=== PATIENT | female | born 1940 | race Caucasian/White ===

== ENCOUNTER 2016-09-12 17:52 | Emergency (ER) | payer OTHER, MEDICARE ==
[~2016-09-12] VITALS: Ht 162.6 cm; Wt 63.5 kg
[~2016-09-12 17:52] MED LIST: ACTONEL150 MG PO; AMIODARONE HCL200 M1 PO; BENZONATATE100 MG PO; CARVEDILOL3.125 M1 PO; COREG3.125 MG PO; COZAAR25 M1 PO; Cordarone PO; FLUOXETINE HCL20 M2 PO; FLUOXETINE20 MG PO; LANOXIN125 MCG PO; LEVOTHYROXINE88 MCG PO; LIDOCAINE PAD; LIDODERM 5% PAT1 PAT TOP; LINZESS145 MC1 PO; LIPITOR20 M2 PO; LORAZEPAM0.5 MG PO; LOSARTAN POTASS50 MG PO; MACROBID 100 M100 MG PO; MULTAQ 400MG400 MG PO; MULTIVITAMIN1 TAB PO; OMEGA 31000 MG PO; PHOSLO667 MG PO; PRADAXA150 M1 PO; PREDNISONE10 MG PO; PRILOSEC 20MG C20 MG PO; PROZAC40 M1 PO; TRAMADOL HCL50 MG PO; ZITHROMAX Z-PA250 M1 PO
--- NOTE | 2016-09-12 18:52 | ED CARDIAC/CP/PALPITATIONS ---
History of Present Illness General Chief Complaint: Abdominal Pain/Flank Pain Stated Complaint: CHEST HEAVINESS, ABD PAIN Source: patient, family Exam Limitations: no limitations Vital Signs & Intake/Output Vital Signs & Intake/Output Vital Signs Date Time Temp Pulse Resp B/P Pulse O2 O2 Flow FiO2 Ox Delivery Rate 09/12 2053 99.1 68 16 112/70 98 Room Air 09/12 1808 97.3 77 16 122/78 98 Room Air Allergies Coded Allergies: prednisone (Intermediate, "HEART GOING CRAZY AND POUNDING HEADACHE" 04/25/16) Uncoded Allergies: POLLEN GRASS WEED (04/25/16) Reconcile Medications Amiodarone HCl 200 MG TABLET 1 TAB PO DAILY AFIB (Reported) Atorvastatin Calcium (Lipitor) 20 MG TABLET 1 TAB PO DAILY CHOLESTEROL ( Reported) Carvedilol 3.125 MG TABLET 1 TAB PO BID HEART/BP (Reported) Dabigatran Etexilate Mesylate (Pradaxa 150 MG) 150 MG CAPSULE 1 CAP PO BID Blood Thinner Digoxin (Lanoxin) 125 MCG TABLET 1 TAB PO Monday HEART (Reported) Ipratropium [place] 42 MCG (0.06 %) SPRAY 1 SPRAY NASB PRN ALLERGIES ( Reported) Levothyroxine Sodium 0.088 MG TAB 0.088 MG PO DAILY AC THYROID (Reported) Linaclotide (Linzess) 290 MCG CAP 1 CAP PO DAILY CONSTIPATION (Reported) Losartan Potassium (Cozaar) 25 MG TABLET 1 TAB PO DAILY BP (Reported) Montelukast Sodium (Singulair) 10 MG TABLET 1 TAB PO DAILY ALLERGIES ( Reported) Risedronate Sodium (Actonel) 150 MG TAB 1 TAB PO Q30D BLADDER (Reported) on the same date with a full glass of water at least 30 minutes before first food or drink of the day; remain in an upright posi Vortioxetine Hydrobromide (Trintellix) 5 MG TABLET 1 TAB PO DAILY MENTAL HEALTH (Reported) Triage Note: PRESENTS TO ED COMPLAINING OF CHEST DISCOMFORT THAT BEGAN LAST NIGHT. IT HAS BEEN ON AND OFF SINCE, ALSO REPORTS INCREASE BURPING, DENIED NAUSEA OR VOMITING, NO DIAPHRESIS. SHE HAS HX OF A-FIB CURRENTLY ON PRADAXA Triage Nurses Notes Reviewed? yes HPI: 76-year-old female with multiple medical complaints. She states that yesterday afternoon she started not feeling well, malaise, feeling"fidgety inside". She went to bed and slept for most of the evening, woke up with some heaviness in the anterior chest region and epigastric region as well as belching and continued fatigue, slept throughout the day. She has no shortness of breath or fever no dyspnea on exertion. She has drinking large amounts of water, she has decreased appetite. She has no dysuria. She has history of UTIs in the past, history of dehydration. She has history of A. fib and sees Dr. Anthony Osborn, she is on Pradaxa for this. A few months ago she had a stress test that was negative and she has been well since. She denies any cough congestion or fever. No back pain, no chest pain that is radiating into the back no jaw pain or left arm. (LISA JUSTICE) Past History Travel History Traveled to [place] past 21 day No Medical History Any Pertinent Medical History? 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 No (LISA JUSTICE) Review of Systems Review of Systems Constitutional: Reports: see HPI. EENTM: Reports: no symptoms. Respiratory: Reports: no symptoms. Cardiovascular: Reports: see HPI. GI: Reports: no symptoms. Genitourinary: Reports: no symptoms. Musculoskeletal: Reports: no symptoms. Skin: Reports: no symptoms. Neurological/Psychological: Reports: no symptoms. Hematologic/Endocrine: Reports: no symptoms. Immunologic/Allergic: Reports: no symptoms. All Other Systems: Reviewed and Negative (LISA JUSTICE) Physical Exam Physical Exam Cardiovascular: regular rate/rhythm Comments: Well-developed well-nourished person in no acute distress HEENT: Normal EENT exam, extraocular motion intact, no nystagmus. Pupils equally round and reactive to light. Nose is atraumatic. Pharynx normal. No swelling or edema. Neck: Supple, no lymphadenopathy, normal range of motion without pain or tenderness Back: Nontender, no CVA tenderness. Full range of motion Cardiovascular: Regular rate and rhythms no murmurs, normal JVP Respiratory: Chest nontender. No respiratory distress. Breath sounds clear to auscultation bilaterally Abdomen: Soft, nontender nondistended, no appreciable organomegaly. Normal bowel sounds. No ascites Extremity: No edema, no calf tenderness to palpation, normal and equal pulses. Neuro: Alert oriented x3, motor sensory normal, cranial nerves II through XII grossly intact. Skin: No appreciable rash on exposed skin, skin is warm and dry. Psych: Mood and affect is normal, memory and judgment is normal. Core Measures ACS in differential dx? Yes Severe Sepsis Present: No Septic Shock Present: No (SUDHAKAR SALDANA,LISA) Progress Differential Diagnosis: AMI, aortic dissection, atrial fibrillation, cholecystitis, CHF/pulm edema, costochondritis, hyperkalemia, hypovolemia, hyperthyroid, hyperventilation, intracranial hemorrhage, musculoskeletal pain, myocarditis, pancreatitis, pericarditis, pneumonia, pneumothorax, PSVT, pulmonary embolism, PUD/GERD, PVCs/PACs, respiratory failure, rib fracture, sepsis, unstable angina, V-fib/V-Tach, WPW syndrome Plan of Care: Orders Procedure Date/time Status CULTURE,URINE 09/12 184 Active URINALYSIS 09/12 184 Complete TROPONIN LEVEL 09/12 181 Complete MAGNESIUM 09/12 181 Complete COMPREHENSIVE METABOLIC PANEL 09/12 181 Complete CHOLESTEROL 09/12 1810 Complete CBC WITHOUT DIFFERENTIAL 09/12 181 Complete EKG 09/12 1753 Active Laboratory Tests 09/12/16 1940: Anion Gap 10, Estimated GFR 49 L, BUN/Creatinine Ratio 12.7, Glucose 144 H, Calcium 9.1, Magnesium 2.6 H, Total Bilirubin 0.4, AST 27, ALT 37, Alkaline Phosphatase 65, Troponin I 0.01, Total Protein 6.4, Albumin 3.6, Globulin 2.8, Albumin/Globulin Ratio 1.3, Cholesterol 128, CBC w Diff NO MAN DIFF REQ, RBC 3.44 L, MCV 96.1, MCH 32.3 H, RDW 14.0, MPV 8.3, Gran % 53.1, Lymphocytes % 29.5, Monocytes % 13.7 H, Eosinophils % 3.0, Basophils % 0.7, Absolute Granulocytes 2.2, Absolute Lymphocytes 1.2, Absolute Monocytes 0.6, Absolute Eosinophils 0.1, Absolute Basophils 0, PUBS MCHC 33.7 09/12/161921: Urine Color YEL, Urine Clarity CLEAR, Urine pH 6.5, Ur Specific [place] 1.015, Urine Protein NEG, Urine Ketones NEG, Urine Nitrite NEG, Urine Bilirubin NEG, Urine Urobilinogen 0.2, Ur Leukocyte Esterase NEG, Ur Microscopic SEDIMENT EXAMINED, Urine RBC 10-15 H, Urine WBC 1-3 H, Ur Epithelial Cells RARE, Urine Hemoglobin SMALL H, Urine Glucose NEG Microbiology 09/12 1921 URINE ROUT: Urine Culture - RECD Diagnostic Imaging: Viewed by Me: Radiology Read. Discussed w/RAD: Radiology Read. CXR Impression: no acute abnormality, no infiltrates Initial ED EKG: NSR, rate (75), no ST T wave changes Prior EKG: unchanged Rhythm Strip: normal sinus rhythm Hand-Off Endorsed To: JAMILAH ARREAGA,ROLDAN Arroyo Endorsed Time: 1952 Pending: labs Comments: Workup started, blood tests drawn and urinalysis pending, possible dehydration versus urinary tract infection. Considered cardiac causes as well and troponin is pending, EKG is unremarkable, no change from previous. She signed out to Dr. Jarrett at change of shift (LISA JUSTICE) Departure Departure Condition: Stable Referrals: WAYNE ARREAGA,ISHA Sabillon (PCP/Family) Departure Forms: Customer Survey General Discharge Information (LISA JUSTICE) Departure Disposition: HOME OR SELF CARE Clinical Impression Primary Impression: Chest pain, unspecified Additional Instructions: RETURN IF SYMPTOMS WORSEN OR FOR ANY CONCERNS PA/COSTUMED CHARACTER ENTERTAINER Co-Sign Statement Statement: ED Attending supervision documentation- [X] I saw and evaluated the patient. I have also reviewed all the pertinent lab results and diagnostic results. I agree with the findings and the plan of care as documented in the PA's/COSTUMED CHARACTER ENTERTAINER's documentation. [X] I have reviewed the ED Record and agree with the PA's/COSTUMED CHARACTER ENTERTAINER's documentation. [] Additions or exceptions (if any) to the PAs/COSTUMED CHARACTER ENTERTAINER's note and plan are summarized below: [Patient came in with a fullness sensation in her epigastric and lower chest area that started last night. Patient was able to fall asleep but woke up and still had the discomfort. The discomfort and pain with her all day. There no aggravating or mitigating factors. Patient did have a normal bowel movement. Patient states that she has been belching more than normal however that has not been helping. Her workup is within normal limits. Patient drink some water and ate crackers in the emergency department and currently feels better. 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 Patient advised to return for any concerns or if her symptoms come back.] (JAMILAH ARREAGA,ROLDAN Arroyo) Critical Care Note Critical Care Note Critical Care Time: non-applicable (SUDHAKAR SALDANA,LISA)
--- NOTE | 2016-09-12 19:05 | RADIOLOGY REPORT ---
EXAMINATION: XR PORTABLE CHEST CLINICAL INFORMATION: Chest pressure. COMPARISON: Chest x-ray 07/12/2016 TECHNIQUE: Portable AP portable view of the chest was obtained. 6:47 PM FINDINGS: Lungs are clear. No pulmonary vascular congestion. No infiltrate or pleural effusion. The heart size is normal. The cardiac and mediastinal contours are normal. There are calcifications of the thoracic aorta. There are multilevel degenerative changes of dorsal spine. IMPRESSION: Unremarkable examination.
[2016-09-12] MEDS ORDERED: SINGULAIR10 M1 PO (19:18)
[2016-09-12] MEDS ORDERED: IPRATROPIUM BRO15 M1 NASB (19:18)
[2016-09-12] MEDS ORDERED: TRINTELLIX5 MG PO (19:19)
[2016-09-12 19:53] LABS: ABSOLUTE BASOPHIL COUNT 0 /CUMM (0.0-0.2); ABSOLUTE EOSINOPHIL COUNT 0.1 /CUMM (0.0-0.7); ABSOLUTE GRANULOCYTE CT 2.2 /CUMM (1.4-6.5); ABSOLUTE LYMPH COUNT 1.2 /CUMM (1.2-3.4); ABSOLUTE MONOCYTE COUNT 0.6 /CUMM (0.10-0.60); BASOPHIL % 0.7 % (0.0-2.0); GRANULOCYTE % 53.1 % (42.2-75.2); HEMATOCRIT 33.1 % (37-47); MEAN CORPUSCULAR HGB 32.3 PG (27.0-31.0); MEAN CORPUSCULAR HGB CONC 33.7 G/DL (33.0-37.0); MEAN CORPUSCULAR VOLUME 96.1 FL (81.0-99.0); MEAN PLATELET VOLUME 8.3 FL (7.4-10.4); PLATELET COUNT 177 /CUMM (130-400); RED BLOOD CELL CT 3.44 /CUMM (4.20-5.40); WHITE BLOOD CELL COUNT 4.2 /CUMM (4.8-10.8)
[2016-09-12 20:54] VITALS: BP 112/70
== END 2016-09-12 21:15 ==
LOC: ERH 17:52
PROVIDERS: Emergency Medicine
DX: R07.89 Other chest pain (principal)
CPT/HCPCS: 81001; 87086; 93005; 93010

== ENCOUNTER 2016-10-15 14:01 | Emergency (ER) | payer OTHER, MEDICARE ==
[~2016-10-15] VITALS: Ht 162.6 cm; Wt 63.5 kg
[~2016-10-15 14:01] MED LIST changes: +IPRATROPIUM BRO15 M1 NASB; +SINGULAIR10 M1 PO; +TRINTELLIX5 MG PO
--- NOTE | 2016-10-15 15:03 | ED AMS/SEIZURE/WEAK/DIZZY ---
History of Present Illness General Chief Complaint: General Adult Stated Complaint: WEAK;AGUILAR Source: patient, family, old records Exam Limitations: no limitations Vital Signs & Intake/Output Vital Signs & Intake/Output Vital Signs Date Time Temp Pulse Resp B/P Pulse O2 O2 Flow FiO2 Ox Delivery Rate 10/15 1543 68 118/68 10/15 1517 64 118/78 10/15 1406 97.7 73 18 118/77 97 Room Air Allergies Coded Allergies: prednisone (Intermediate, "HEART GOING CRAZY AND POUNDING HEADACHE" 04/25/16) Uncoded Allergies: POLLEN GRASS WEED (04/25/16) Reconcile Medications Amiodarone HCl 200 MG TABLET 1 TAB PO DAILY AFIB (Reported) Atorvastatin Calcium (Lipitor) 20 MG TABLET 1 TAB PO DAILY CHOLESTEROL ( Reported) Carvedilol 3.125 MG TABLET 1 TAB PO BID HEART/BP (Reported) Dabigatran Etexilate Mesylate (Pradaxa 150 MG) 150 MG CAPSULE 1 CAP PO BID Blood Thinner Digoxin (Lanoxin) 125 MCG TABLET 1 TAB PO Monday HEART (Reported) Ipratropium [place] 42 MCG (0.06 %) SPRAY 1 SPRAY NASB PRN ALLERGIES ( Reported) Levothyroxine Sodium 88 MCG TABLET 1 TAB PO DAILY THYROID (Reported) Linaclotide (Linzess) 145 MCG CAPSULE 1 CAP PO DAILY GI (Reported) Losartan Potassium (Cozaar) 25 MG TABLET 1 TAB PO DAILY BP (Reported) Montelukast Sodium (Singulair) 10 MG TABLET 1 TAB PO DAILY PRN ALLERGIES ( Reported) Polyethylene Glycol 3350 17 GRAM/DOSE POWDER 17 GM PO BID GI (Reported) Risedronate Sodium (Actonel) 150 MG TABLET 1 TAB PO Q30D BONES (Reported) on the same date with a full glass of water at least 30 minutes before first food or drink of the day; remain in an upright posi Sennosides (Senokot) 8.6 MG TABLET 1 TAB PO DAILY GI (Reported) Vortioxetine Hydrobromide (Trintellix) 5 MG TABLET 1 TAB PO DAILY MENTAL HEALTH (Reported) Triage Note: PT TO ED FOR "DEHYDRATION AND WEAKNESS". SAW DR MICHAUD MONDAY FOR EKG WHICH WAS "NORMAL". DENIES CP, SOB, HURTADO. Triage Nurses Notes Reviewed? yes Onset: Gradual Duration: week(s): (2) Injury Environment: home Severity: mild No Modifying Factors: none Associated Symptoms: weakness HPI: 76 year old female presents with weakness and feels she may be dehydrated. No chest pain, shortness of breath, n/v/d or fever chills. She just had a follow up with Dr. Aguilar on monday for regular check up and everything was okay. No change in meds or diet. She does have occasional cough and sometimes wakes up with some dried blood around the edges of her mouth. Denies any hemoptysis. Per PCP told her that maybe she has some occasional bleeding from her nose secondary to dry environment in the winter. No tongue lacerations. No incontinence or seizure activity. Past History Travel History Traveled to [place] past 21 day No Medical History Any Pertinent Medical History? 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 No Review of Systems Review of Systems Constitutional: Reports: malaise, weakness. Denies: chills, diaphoresis. EENTM: Reports: no symptoms. Respiratory: Reports: cough. Denies: short of breath, sputum production. Cardiovascular: Denies: chest pain, palpitations, peripheral edema. GI: Denies: abdominal pain, diarrhea, nausea, vomiting. Genitourinary: Reports: no symptoms. Musculoskeletal: Reports: no symptoms. Skin: Reports: no symptoms. Neurological/Psychological: Reports: no symptoms. Hematologic/Endocrine: Reports: bleeding. Denies: bruising, polyuria, polydipsia. Immunologic/Allergic: Denies: splenectomy. All Other Systems: Reviewed and Negative Physical Exam Physical Exam General Appearance: well developed/nourished, alert, awake, mild distress Head: atraumatic, normal appearance Eyes: Bilateral: normal appearance, PERRL, EOMI. Ears, Nose, Throat: normal pharynx, hearing grossly normal Neck: normal inspection, supple, full range of motion Respiratory: normal breath sounds, chest non-tender, no respiratory distress Cardiovascular: regular rate/rhythm Peripheral Pulses: 2+ radial (R), 2+ radial (L) Gastrointestinal: normal bowel sounds, soft, non-tender Back: normal inspection, normal range of motion Extremities: normal range of motion Neurologic/Psych: no motor/sensory deficits, awake, alert, oriented x 3 Skin: intact, normal color, warm/dry Core Measures ACS in differential dx? No CVA/TIA Diagnosis: No Severe Sepsis Present: No Septic Shock Present: No Progress Differential Diagnosis: arrythmia, anemia, dehydration, electrolyte imbalance, GI bleed, pneumonia, postural hypotension Plan of Care: Orders Procedure Date/time Status FREE T4 10/15 1514 Complete URINALYSIS 10/15 1506 Complete THYROID STIMULATING HORMONE 10/15 1502 Complete DIGOXIN 10/15 1502 Complete TROPONIN LEVEL 10/15 1449 Complete COMPREHENSIVE METABOLIC PANEL 10/15 1449 Complete CBC WITHOUT DIFFERENTIAL 10/15 1449 Complete EKG 10/15 1449 Active Laboratory Tests 10/15/16 1647: Urine Color STRAW, Urine Clarity CLEAR, Urine pH 6.5, Ur Specific [place] 1.010, Urine Protein NEG, Urine Ketones NEG, Urine Nitrite NEG, Urine Bilirubin NEG, Urine Urobilinogen 0.2, Ur Leukocyte Esterase TRACE H, Ur Microscopic SEDIMENT EXAMINED, Urine WBC 1-3 H, Ur Epithelial Cells RARE, Urine Bacteria RARE H, Urine Hemoglobin NEG, Urine Glucose NEG 10/15/16 1514: TSH 5.620 H, Free T4 2.54 H 10/15/16 1514: Anion Gap 11, Estimated GFR 49 L, BUN/Creatinine Ratio 13.6, Glucose 107 H, Calcium 8.8, Total Bilirubin 0.3, AST 47 H, ALT 34, Alkaline Phosphatase 67, Troponin I < 0.01, Total Protein 6.2 L, Albumin 3.5, Globulin 2.7, Albumin/ Globulin Ratio 1.3, CBC w Diff NO MAN DIFF REQ, RBC 3.56 L, MCV 97.3, MCH 32.4 H, RDW 13.7, MPV 8.6, Gran % 69.9, Lymphocytes % 16.6 L, Monocytes % 11.6 H, Eosinophils % 1.6, Basophils % 0.3, Absolute Granulocytes 6.0, Absolute Lymphocytes 1.4, Absolute Monocytes 1.0 H, Absolute Eosinophils 0.1, Absolute Basophils 0, PUBS MCHC 33.3, Digoxin 0.6 L 10/15/16 1503: Free T4 Cancelled labs, cxr, ekg, dixogin level, urinalysis. IV fluids ordered. Patient reports feeling much better after fluids. Labs wnl. CXR negative. (SHERIN ARREAGA,LALITHA) Diagnostic Imaging: Viewed by Me: Radiology Read. Discussed w/RAD: Radiology Read. Radiology Impression: PATIENT: RAQUEL THOMPSON PRESENT AGE: 76 PATIENT ACCOUNT NO: [id number] : 42 LOCATION: [facility] ORDERING PHYSICIAN: LALITHA DUFF MD SERVICE DATE: 10/15/16 EXAM TYPE: RAD - XRY -CHEST XRAY, PA AND LATERAL EXAMINATION: XR CHEST CLINICAL INFORMATION: Weakness. Cough. COMPARISON: Portable chest x-ray 09/12/2016. TECHNIQUE: AP and lateral views of the chest were obtained. FINDINGS: The lungs are well-expanded and clear without focal airspace consolidation. No pleural effusions or pneumothoraces are identified. Cardiomediastinal contours are within normal limits. Soft tissues are unremarkable. No acute osseous abnormality is identified. IMPRESSION: No acute pulmonary process. DICTATED BY: JENNIFER CLAUDIO MD DATE/TIME DICTATED:10/15/161614 MUSIC HISTORIAN:HAILE DATE/TIME TRANSCRIBED:10/15/161614 CONFIDENTIAL, DO NOT COPY WITHOUT APPROPRIATE AUTHORIZATION. <Electronically signed in Other Vendor System> SIGNED BY: JENNIFER CLAUDIO MD 10/15/161618 Initial ED EKG: NSR, PROLONGED QT Departure Departure Time of Disposition: 1727 Disposition: HOME OR SELF CARE Condition: Stable Clinical Impression Primary Impression: Weakness Referrals: WAYNE ARREAGA,ISHA Sabillon (PCP/Family) ISELA ARREAGA,ROLDAN Bloom Additional Instructions: Follow-up the results of your thyroid function tests with your primary doctor and with Dr. Steinberg in the office. Departure Forms: Customer Survey General Discharge Information
[2016-10-15 15:39] LABS: ABSOLUTE BASOPHIL COUNT 0 /CUMM (0.0-0.2); ABSOLUTE EOSINOPHIL COUNT 0.1 /CUMM (0.0-0.7); ABSOLUTE LYMPH COUNT 1.4 /CUMM (1.2-3.4); BASOPHIL % 0.3 % (0.0-2.0); EOSINOPHIL % 1.6 % (0-5); GRANULOCYTE % 69.9 % (42.2-75.2); HEMATOCRIT 34.6 % (37-47); MEAN CORPUSCULAR HGB 32.4 PG (27.0-31.0); MEAN CORPUSCULAR HGB CONC 33.3 G/DL (33.0-37.0); MEAN CORPUSCULAR VOLUME 97.3 FL (81.0-99.0); MEAN PLATELET VOLUME 8.6 FL (7.4-10.4); PLATELET COUNT 173 /CUMM (130-400); RBC DISTRIBUTION WIDTH 13.7 % (11.5-14.5); RED BLOOD CELL CT 3.56 /CUMM (4.20-5.40); WHITE BLOOD CELL COUNT 8.5 /CUMM (4.8-10.8)
--- NOTE | 2016-10-15 16:19 | RADIOLOGY REPORT ---
EXAMINATION: XR CHEST CLINICAL INFORMATION: Weakness. Cough. COMPARISON: Portable chest x-ray 09/12/2016. TECHNIQUE: AP and lateral views of the chest were obtained. FINDINGS: The lungs are well-expanded and clear without focal airspace consolidation. No pleural effusions or pneumothoraces are identified. Cardiomediastinal contours are within normal limits. Soft tissues are unremarkable. No acute osseous abnormality is identified. IMPRESSION: No acute pulmonary process.
[2016-10-15] MEDS ORDERED: POLYETHYLENE G255 GM PO (17:09)
[2016-10-15] MEDS ORDERED: ACTONEL150 M1 PO (17:10)
[2016-10-15] MEDS ORDERED: SENOKOT8.6 M2 PO (17:10)
[2016-10-15 17:33] VITALS: BP 142/72
== END 2016-10-15 18:10 ==
LOC: ERH 14:01
PROVIDERS: Emergency Medicine
DX: R53.1 Weakness (principal)
CPT/HCPCS: 81001; 93005; 93010; 96360; J7040

== ENCOUNTER 2016-11-17 21:49 | Emergency (ER) | payer OTHER, MEDICARE ==
[~2016-11-17] VITALS: Ht 162.6 cm; Wt 56.7 kg
[~2016-11-17 21:49] MED LIST changes: +ACTONEL150 M1 PO; +POLYETHYLENE G255 GM PO; +SENOKOT8.6 M2 PO
[2016-11-17 22:38] LABS: ABSOLUTE BASOPHIL COUNT 0 /CUMM (0.0-0.2); ABSOLUTE EOSINOPHIL COUNT 0.2 /CUMM (0.0-0.7); ABSOLUTE GRANULOCYTE CT 2.2 /CUMM (1.4-6.5); ABSOLUTE LYMPH COUNT 1.8 /CUMM (1.2-3.4); ABSOLUTE MONOCYTE COUNT 0.8 /CUMM (0.10-0.60); BASOPHIL % 0.7 % (0.0-2.0); EOSINOPHIL % 4.8 % (0-5); GRANULOCYTE % 42.7 % (42.2-75.2); HEMATOCRIT 33.3 % (37-47); MEAN CORPUSCULAR HGB 32.5 PG (27.0-31.0); MEAN CORPUSCULAR HGB CONC 33.4 G/DL (33.0-37.0); MEAN CORPUSCULAR VOLUME 97.3 FL (81.0-99.0); MEAN PLATELET VOLUME 8.1 FL (7.4-10.4); PLATELET COUNT 164 /CUMM (130-400); RBC DISTRIBUTION WIDTH 14.3 % (11.5-14.5); RED BLOOD CELL CT 3.42 /CUMM (4.20-5.40); WHITE BLOOD CELL COUNT 5.1 /CUMM (4.8-10.8)
--- NOTE | 2016-11-17 23:09 | RADIOLOGY REPORT ---
EXAMINATION: XR PORTABLE CHEST CLINICAL INFORMATION: Chest pain. Cough. Atrial fibrillation. COMPARISON: Chest x-ray 10/15/2016 TECHNIQUE: Portable AP portable view of the chest was obtained. 10:46 PM FINDINGS: Lungs are clear. No pulmonary vascular congestion. No infiltrate or pleural effusion. The heart size is normal. The cardiac and mediastinal contours are normal. There are calcifications of the thoracic aorta. There are multilevel degenerative changes of dorsal spine. IMPRESSION: No acute change of chest.
--- NOTE | 2016-11-17 23:35 | ED CARDIAC/CP/PALPITATIONS ---
History of Present Illness General Chief Complaint: Chest Pain Stated Complaint: BIBA FOR CHEST PAIN Source: patient, family, old records, EMS Exam Limitations: no limitations Vital Signs & Intake/Output Vital Signs & Intake/Output Vital Signs Date Time Temp Pulse Resp B/P Pulse O2 O2 Flow FiO2 Ox Delivery Rate 11/18 0248 98.5 77 18 140/80 11/18 0221 98.5 77 18 128/78 96 Nasal 2.0L Cannula 11/18 0031 Room Air 11/173 97.3 64 18 174/88 97 Room Air ED Intake and Output 11/18 0000 11/17 1200 Intake Total Output Total Balance Patient 125 lb Weight Allergies Coded Allergies: prednisone (Intermediate, "HEART GOING CRAZY AND POUNDING HEADACHE" 04/25/16) Uncoded Allergies: POLLEN GRASS WEED (04/25/16) Reconcile Medications Amiodarone HCl 200 MG TABLET 1 TAB PO DAILY AFIB (Reported) Atorvastatin Calcium (Lipitor) 20 MG TABLET 1 TAB PO DAILY CHOLESTEROL ( Reported) Carvedilol 3.125 MG TABLET 1 TAB PO BID HEART/BP (Reported) Dabigatran Etexilate Mesylate (Pradaxa 150 MG) 150 MG CAPSULE 1 CAP PO BID Blood Thinner Digoxin (Lanoxin) 125 MCG TABLET 1 TAB PO Monday HEART (Reported) Ipratropium [place] 42 MCG (0.06 %) SPRAY 1 SPRAY NASB PRN ALLERGIES ( Reported) Levothyroxine Sodium 88 MCG TABLET 1 TAB PO DAILY THYROID (Reported) Linaclotide (Linzess) 145 MCG CAPSULE 1 CAP PO DAILY GI (Reported) Losartan Potassium (Cozaar) 25 MG TABLET 1 TAB PO DAILY BP (Reported) Montelukast Sodium (Singulair) 10 MG TABLET 1 TAB PO DAILY PRN ALLERGIES ( Reported) Polyethylene Glycol 3350 17 GRAM/DOSE POWDER 17 GM PO BID GI (Reported) Risedronate Sodium (Actonel) 150 MG TABLET 1 TAB PO Q30D BONES (Reported) on the same date with a full glass of water at least 30 minutes before first food or drink of the day; remain in an upright posi Sennosides (Senokot) 8.6 MG TABLET 1 TAB PO DAILY GI (Reported) Vortioxetine Hydrobromide (Trintellix) 5 MG TABLET 1 TAB PO DAILY MENTAL HEALTH (Reported) Core Measure Meds Pre-Hospital pradaxa Triage Note: PT BIBA C/O 05/16 CHEST PAIN THAT GOES ACROSS CHEST WALL AND RADIATES TO LOWER BACK. PT HAS HX OF AFIB. PT RECIEVED 324MG ASPIRIN BY EMS. EKG IN PROGRESS. Triage Nurses Notes Reviewed? yes Onset: Just prior to arrival Duration: hour(s):, constant, continues in ED Timing: recent history Quality/Severity: severe, dull Location: central Radiation: back Activities at Onset: rest Prior Chest Pain/Card Workup: echocardiography, stress test Nitro Today/Relief: no nitro taken today Aspirin Today: 325 mg x 1, provided by EMS Associated Symptoms: dizziness, shortness of breath LMP (ages 10-50): post menopausal : No Patient currently breastfeeds: No HPI: 2 hours prior to admission patient complains of substernal chest pain radiating to her back severe constant associated with shortness of breath weakness. She reports several days prior to admission having nonproductive cough. She denies fever chills nausea vomiting diarrhea abdominal pain dysuria headache rash bleeding. Past History Travel History Traveled to [place] past 21 day No Medical History Any Pertinent Medical History? 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 No Review of Systems Review of Systems Constitutional: Reports: no symptoms. EENTM: Reports: no symptoms. Respiratory: Reports: no symptoms. Cardiovascular: Reports: see HPI, chest pain. GI: Reports: no symptoms. Genitourinary: Reports: no symptoms. Musculoskeletal: Reports: no symptoms. Skin: Reports: no symptoms. Neurological/Psychological: Reports: no symptoms. Hematologic/Endocrine: Reports: no symptoms. Immunologic/Allergic: Reports: no symptoms. All Other Systems: Reviewed and Negative Physical Exam Physical Exam General Appearance: well developed/nourished, alert, awake, anxious, severe distress Head: atraumatic, normal appearance Eyes: Bilateral: normal appearance, PERRL, EOMI. Ears, Nose, Throat: normal pharynx, normal ENT inspection Neck: normal inspection, supple, full range of motion, no midline tenderness Respiratory: chest non-tender, no respiratory distress, quiet respiration, rales Cardiovascular: regular rate/rhythm, normal peripheral pulses, norml femoral pulses equa Peripheral Pulses: 4+ carotid (R), 4+ carotid (L), 2+ radial (R), 2+ radial (L), 2+ femoral (R), 2+ femoral (L) Gastrointestinal: normal bowel sounds, soft, non-tender, no organomegaly Back: normal inspection, normal range of motion Extremities: normal inspection, normal capillary refill, normal range of motion, no edema Neurologic/Psych: no motor/sensory deficits, awake, alert, oriented x 3, president/gm production & live experiences II- XII nml as tested Reflexes: 2+: bicep (R), bicep (L). Skin: intact, normal color, warm/dry Lymphatic: no anterior cervical debora Core Measures ACS in differential dx? Yes ASA ordered for poss ACS? Yes-ordered Severe Sepsis Present: No Septic Shock Present: No Progress Differential Diagnosis: AMI, aortic dissection, atrial fibrillation, pneumonia Plan of Care: Orders Procedure Date/time Status Add-on Test (ER Only) 11/17 2335 Active DIGOXIN 11/17 223 Complete TROPONIN LEVEL 11/18 2219 Complete COMPREHENSIVE METABOLIC PANEL 11/17 222 Complete CBC WITHOUT DIFFERENTIAL 11/18 2219 Complete EKG 11/17 2150 Active Laboratory Tests 11/17/16 2230: Anion Gap 10, Estimated GFR > 60, BUN/Creatinine Ratio 14.4, Glucose 105 H, Calcium 8.8, Total Bilirubin 0.5, AST 49 H, ALT 52, Alkaline Phosphatase 77, Troponin I < 0.01, Total Protein 6.7, Albumin 3.9, Globulin 2.8, Albumin/ Globulin Ratio 1.4, CBC w Diff NO MAN DIFF REQ, RBC 3.42 L, MCV 97.3, MCH 32.5 H, RDW 14.3, MPV 8.1, Gran % 42.7, Lymphocytes % 36.1, Monocytes % 15.7 H, Eosinophils % 4.8, Basophils % 0.7, Absolute Granulocytes 2.2, Absolute Lymphocytes 1.8, Absolute Monocytes 0.8 H, Absolute Eosinophils 0.2, Absolute Basophils 0, PUBS MCHC 33.4, Digoxin 0.5 L Diagnostic Imaging: Viewed by Me: Radiology Read, CT Scan. Discussed w/RAD: Radiology Read, CT Scan. 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 Contrast does not appear to fill the false lumen. Mild dependent bibasilar atelectasis. Bronchiectasis. CXR Impression: no acute abnormality Initial ED EKG: normal axis, normal intervals, normal p-waves, normal QRS complex, normal sinus rhythm, nonspecific ST T wave chg Prior EKG: unchanged Rhythm Strip: normal sinus rhythm Departure Departure Disposition: OTHER GENERAL HOSPITAL (ACUTE) Condition: Stable Clinical Impression Primary Impression: Aortic dissection distal to left subclavian Referrals: WAYNE ARREAGA,ISHA Sabillon (PCP/Family) Departure Forms: Customer Survey General Discharge Information Critical Care Note Critical Care Note Critical Care Time: 30-74 min (40)
--- NOTE | 2016-11-18 02:27 | CT SCAN REPORT ---
EXAMINATION: CTA CHEST, ABDOMEN AND PELVIS STUDY CLINICAL INFORMATION: Chest pain. Back pain. Concern for aneurysm. COMPARISON: Chest radiograph from 11/17/2016. TECHNIQUE: Contiguous helical images of the chest, abdomen and pelvis were obtained following the administration of IV contrast. Multiplanar reconstructions were performed. MIPS were obtained and reviewed. DLP: 807 mGy-cm. CONTRAST: 100 mL of Optiray 350 were administered without incident. FINDINGS: The heart is of normal size. There is no pericardial effusion. The great vessels are unremarkable. There is dilation to the ascending aorta measuring approximately 4.0 cm in greatest sagittal AP dimension. There is a dissection that begins at the level of the left subclavian artery indicative of a type B dissection. Contrast is not identified within the false lumen. However, please note that the study was timed for a pulmonary embolism study. Opacification of the aorta is suboptimal. This extends to the infrarenal portion of the aorta. There are no pulmonary arterial filling defects. There are no chest wall masses. Within the anterior mediastinum, there is an approximately 2.4 cm fluid focus. This is adjacent to the prominent ascending aorta, but not associated with the dissection. Review of lung windows demonstrates that there are neither pleural effusions nor pneumothoraces. There is mild dependent bibasilar atelectasis. There is mild bilateral bronchiectasis. There are no consolidations. There are no pulmonary parenchymal nodules. The liver is of normal size and attenuation without concerning focal lesions nor intrahepatic biliary ductal dilation. There is an approximately 5 cm cyst within the left lobe of the liver. There is an approximately 1.17 m cyst within the inferior right lobe of the liver. There is layering high attenuation bile within the gallbladder lumen.. There is no wall thickening or discernible pericholecystic fluid. The spleen, pancreas, adrenal glands are unremarkable. Both kidneys are of normal size and attenuation without hydronephrosis or nephrolithiasis. Following the administration of IV contrast, prompt symmetric nephrograms are displayed. There is no abdominal free fluid. There is neither mesenteric nor retroperitoneal lymphadenopathy. Normal unopacified loops of small and large bowel are identified. There is no pelvic free fluid. The urinary bladder is unremarkable. There is neither pelvic nor inguinal lymphadenopathy. Bone windows: Neither sclerotic nor lytic bone lesions are identified. There is multilevel disc height loss within the lumbar spine with anterior osteophyte formation. 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 Contrast does not appear to fill the false lumen. Mild dependent bibasilar atelectasis. Bronchiectasis. The aforementioned was communicated to Dr. Gilmore at 0216 hours. An addendum will be issued following the process seen and review of 3-D CTA imaging. Dilation to the asymmetric aorta measuring 4 cm in greatest sagittal AP dimension.
[2016-11-18 06:41] VITALS: BP 128/77
== END 2016-11-18 06:18 | disposition short-term general hospital (02) ==
LOC: ERH 21:49
PROVIDERS: Emergency Medicine
DX: I71.00 Dissection of unspecified site of aorta (principal); R07.89 Other chest pain; E78.5 Hyperlipidemia, unspecified; I48.0 Paroxysmal atrial fibrillation; E03.9 Hypothyroidism, unspecified; F17.200 Nicotine dependence, unspecified, uncomplicated
CPT/HCPCS: 74174; 93005; 93010; 96374; 96375; 96376; J2405

== ENCOUNTER 2016-11-27 13:58 | Emergency (ER) | payer OTHER, MEDICARE ==
[~2016-11-27] VITALS: Ht 160 cm; Wt 72.6 kg
[2016-11-27 14:00] VITALS: BP 00/00
--- NOTE | 2016-11-27 14:08 | ED CRITICAL CARE ---
History of Present Illness General Chief Complaint: Cardiopulmonary Resuscitation Stated Complaint: BIBA FOR CPR Source: patient, old records, EMS Exam Limitations: unable to give history, clinical condition Vital Signs & Intake/Output Vital Signs & Intake/Output Vital Signs Date Time Temp Pulse Resp B/P B/P Pulse O2 O2 Flow FiO2 Mean Ox Delivery Rate 11/27 1400 00 Allergies Coded Allergies: prednisone (Intermediate, "HEART GOING CRAZY AND POUNDING HEADACHE" 04/25/16) Uncoded Allergies: POLLEN GRASS WEED (04/25/16) Reconcile Medications Amiodarone HCl 200 MG TABLET 1 TAB PO DAILY AFIB (Reported) Atorvastatin Calcium (Lipitor) 20 MG TABLET 1 TAB PO DAILY CHOLESTEROL ( Reported) Carvedilol 3.125 MG TABLET 1 TAB PO BID HEART/BP (Reported) Dabigatran Etexilate Mesylate (Pradaxa 150 MG) 150 MG CAPSULE 1 CAP PO BID Blood Thinner Digoxin (Lanoxin) 125 MCG TABLET 1 TAB PO Monday HEART (Reported) Ipratropium [place] 42 MCG (0.06 %) SPRAY 1 SPRAY NASB PRN ALLERGIES ( Reported) Levothyroxine Sodium 88 MCG TABLET 1 TAB PO DAILY THYROID (Reported) Linaclotide (Linzess) 145 MCG CAPSULE 1 CAP PO DAILY GI (Reported) Losartan Potassium (Cozaar) 25 MG TABLET 1 TAB PO DAILY BP (Reported) Montelukast Sodium (Singulair) 10 MG TABLET 1 TAB PO DAILY PRN ALLERGIES ( Reported) Polyethylene Glycol 3350 17 GRAM/DOSE POWDER 17 GM PO BID GI (Reported) Risedronate Sodium (Actonel) 150 MG TABLET 1 TAB PO Q30D BONES (Reported) on the same date with a full glass of water at least 30 minutes before first food or drink of the day; remain in an upright posi Sennosides (Senokot) 8.6 MG TABLET 1 TAB PO DAILY GI (Reported) Vortioxetine Hydrobromide (Trintellix) 5 MG TABLET 1 TAB PO DAILY MENTAL HEALTH (Reported) Triage Nurses Notes Reviewed? yes HPI: Patient presents for evaluation of unresponsiveness. Patient was last seen 30 minutes prior to discovery. Upon arrival the paramedics found the patient to be unresponsive and asystolic. She had no spontaneous movements or respirations. CPR was initiated and the patient was intubated with a #8 endotracheal tube. She received a total of 5 mg of IV epinephrine with no return of spontaneous circulation. Patient was resuscitated by paramedics for approximately 20-30 minutes. Past History Travel History Traveled to [facility] [place] past 21 day No Medical History Any Pertinent Medical History? 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 No (pt unable to provide) Review of Systems Review of Systems Constitutional: Reports: no symptoms. Physical Exam Physical Exam General Appearance: see below Comments: Gen.: Well-nourished, well-developed, no acute respiratory distress. Head: Normocephalic, atraumatic. Eyes: Pupils midpoint and nonreactive, corneas cloudy Ears: Normal inspection bilaterally Nose: Normal inspection Throat/mouth : Endotracheal tube in place Neck: no goiter Heart: No heart tones Lungs: Clear to auscultation bilaterally with normal air entry Chest: Nontender Abdomen: Nondistended Extremities: Cool and pale Neurologic: No spontaneous movements Skin: warm and dry Psychiatric: Unable to assess Core Measures ACS in differential dx? Yes CVA/TIA Diagnosis: No Severe Sepsis Present: No Septic Shock Present: No Progress Differential Diagnoses I considered the following diagnoses in my evaluation of the patient: PA, CVA, aortic dissection,pe Plan of Care: Orders Procedure Date/time Status Telemetry/Copywriter 11/27 1607 Active home. (WENDY ARREAGA,MURTAZA Manriquez) Initial ED EKG: none Rhythm Strip: asystole Comments: Patient pronounced at 14:03. Family updated. Review of patient's past history revealed a recent visit to the [facility] emergency Department with subsequent transfer to another facility due to an aortic dissection Jama b. I suspect patient's likely related to this. Departure Departure Disposition: HOME OR SELF CARE Condition: Stable Clinical Impression Primary Impression: Aortic dissection Qualifiers: Aortic location: thoracic aorta Qualified Code: I71.01 - Dissection of thoracic aorta Referrals: WAYNE ARREAGA,ISHA Sabillon (PCP/Family) Departure Forms: General Discharge Information Critical Care Note Critical Care Note Critical Care Time: non-applicable
== END 2016-11-27 14:39 | disposition expired ==
LOC: ERH 13:58
DX: I71.00 Dissection of unspecified site of aorta (principal)
CPT/HCPCS: 1387; 94799